=== PATIENT | male | born 1995 | race Caucasian/White ===

== ENCOUNTER 2017-02-23 21:30 | Emergency (ER) | payer OTHER ==
[~2017-02-23] VITALS: Ht 190.5 cm; Wt 121.1 kg
[2017-02-23 21:34] VITALS: TEMP 37; Ht 190.5 cm; Wt 121.1 kg
[2017-02-23] MEDS ORDERED: SODIUM CHLORIDE 0.9% 1000ML 1,000 ML IV STA ×2 (22:02)
[2017-02-23 22:07] VITALS: O2SAT 98
[2017-02-23 22:14] LABS: BASO % 0.1 %; BASO ABS # 0.01 K/uL (0-0.2); COMPLETE YES; EOS % 0.2 %; HEMATOCRIT 42.4 % (42-52); IG% 0.2 %; LYMPH % 18.5 %; LYMPH ABS # 1.75 K/uL (1.2-3.4); MEAN CELL VOLUME 81.5 fL (80-100); MEAN CORPUSCULAR HEMOGLOBIN 27.5 pg (25-34); MEAN CORPUSCULAR HGB CONC 33.7 g/dl (32-36); MEAN PLATELET VOLUME 10.1 fL (7.4-10.4); PLATELET COUNT 267 K/uL (130-400); WHITE BLOOD COUNT 9.47 K/uL (4.8-10.8)
[2017-02-23 22:21] LABS: ALT/SGPT 37 U/L (12-78); BLOOD UREA NITROGEN 9 mg/dl (7-18); BUN/CREATININE RATIO 9.2 (10-20); CALCIUM 9.3 mg/dl (8.5-10.1); CARBON DIOXIDE 25 mmol/L (21-32); CHLORIDE 103 mmol/L (98-107); GLUCOSE 90 mg/dl (70-99); MAGNESIUM 1.9 mg/dl (1.8-2.4); POTASSIUM 3.6 mmol/L (3.5-5.1); SODIUM 136 mmol/L (136-145)
[2017-02-23] MEDS ORDERED: DPRSCR45 TOP (22:27)
[2017-02-23] MEDS ORDERED: METH2.5T PO (22:27)
[2017-02-23] MEDS ORDERED: FLV1 PO (22:27)
[2017-02-23 22:30] LABS: ALKALINE PHOSPHATASE 86 U/L (45-117); AST/SGOT 24 U/L (15-37)
[2017-02-23 22:50] LABS: LYME DISEASE AB IGG NEG (NEG); LYME DISEASE AB IGM NEG (NEG)
--- NOTE | 2017-02-23 22:54 | DIAGNOSTIC IMAGING REPORT ---
CHEST ONE VIEW PORTABLE CLINICAL HISTORY: 21 years-old Male presenting with CHEST PAIN. TECHNIQUE: Portable upright AP view of the chest was obtained. COMPARISON: None. FINDINGS: Cardiomediastinal silhouette normal. Lungs and pleural spaces clear. Osseous structures normal. Upper abdomen normal. IMPRESSION: 1. No acute cardiopulmonary disease. Electronically signed by: Natan Bravo M.D. 02/23/2017 10:52 PM Dictated Date/Time: 02/23/2017 10:51 PM
[2017-02-24 01:08] VITALS: BP 120/70; PULSE 84; O2SAT 96
[2017-02-24] MEDS ORDERED: BENTYL HOME PACK 10 MG VIAL PO ONE (01:45)
[2017-02-24] MEDS ORDERED: ONDANSETRON HOME PACK 4MG OD TAB PO ONE (01:45)
--- NOTE | 2017-02-24 05:51 | EMERGENCY ROOM VISIT NOTE ---
History First contact with patient: 21:43 Chief Complaint: CARDIAC ASSESSMENT Stated Complaint: CHEST PAIN, HBP, LBS Nursing Triage Summary: patient reports chest pain and sob for one month History of Present Illness The patient is a 21 year old male who presents to the Emergency Room with complaints of diarrhea along with intermittent chest pain for the past month that occasionally makes him short of breath. No recent chest pain. Patient states every so time he eats in the past few days he has had diarrhea for the past 3 days. No blood or black in it. He has had recent antibiotics. No well water. Patient denies recent chest pain, dyspnea, abdominal pain, vomiting, cough, congestion, back pain, urinary symptoms. He is tolerate by mouth fluids and food. Patient is concerned his thyroid might be off again. Review of Systems See HPI for pertinent positives & negatives. A total of 10 systems reviewed and were otherwise negative. Past Medical/Surgical History GERD, psoriatic arthritis, wisdom tooth extraction Social History Smoking Status: Never Smoker Smokeless Tobacco Use: No Alcohol Use: none Drug Use: none Marital Status: single Housing Status: lives with roommate Occupation Status: [employer] student Current/Historical Medications Scheduled Folic Acid (Folic Acid), 1 MG PO DAILY Methotrexate Sodium (Methotrexate), 4 TABS PO WK Scheduled PRN Betamethasone Dip (Betamethasone Dipropionat), 1 APPLN TOP BID PRN for RASH Physical Exam Vital Signs Date Time Temp Pulse Resp B/P (MAP) Pulse Ox O2 Delivery O2 Flow Rate FiO2 02/24/17 01:08 84 16 120/70 96 Room Air 02/23/17 23:40 91 16 121/75 98 Room Air 02/23/17 22:07 98 Room Air 02/23/17 22:07 98 Room Air 02/23/17 21:48 101 02/23/17 21:34 37.0 106 18 157/87 97 Room Air Pain Rating (0-10): 2.0 Physical Exam VITALS: Vitals are noted on the nurse's note and reviewed by myself. Vital signs stable. GENERAL: Pleasant anxious-appearing male, in no acute distress, nondiaphoretic, well-developed well-nourished. SKIN: The skin was without rashes, erythema, edema, or bruising. There is no tenting of the skin. Capillary reflex less than 2 seconds. HEAD: Normocephalic atraumatic. EARS: External auditory canals clear, tympanic membranes pearly norris without erythema or effusion bilaterally. EYES: Pupils equal round and reactive to light and accommodation. Conjunctivae without injection, sclerae without icterus. Extraocular movements intact. NOSE: Patent, turbinates without inflammation or discharge. MOUTH: Mucous membranes moist. Pharynx without erythema or exudate. Uvula midline. Airway patent. Tongue does not deviate. NECK: Supple without nuchal rigidity. No lymphadenopathy. No thyromegaly. Cervical spine is nontender. No JVD. HEART: Regular rate and rhythm without murmurs gallops or rubs. Chest nontender to palpation LUNGS: Clear to auscultation bilaterally without wheezes, rales or rhonchi. No dullness to percussion. No retractions or accessory muscle use. ABDOMEN: Positive bowel sounds x 4. Normal tympanic percussion. Soft, nontender, without masses or organomegaly. Oliveros sign negative. No guarding or rebound tenderness. MUSCULOSKELETAL: No muscle atrophy, erythema, or edema noted. NEURO: Patient was alert and oriented to person place and time. Normal sensation to light and sharp touch. No focal neurological deficits. Medical Decision & Procedures Laboratory Results 02/23/17 21:45 Red Blood Count 5.20, Mean Corpuscular Volume 81.5, Mean Corpuscular Hemoglobin 27.5, Mean Corpuscular Hemoglobin Concent 33.7, Mean Platelet Volume 10.1, Neutrophils (%) (Auto) 68.0, Lymphocytes (%) (Auto) 18.5, Monocytes (%) (Auto) 13.0, Eosinophils (%) (Auto) 0.2, Basophils (%) (Auto) 0.1, Neutrophils # (Auto ) 6.44, Lymphocytes # (Auto) 1.75, Monocytes # (Auto) 1.23, Eosinophils # (Auto ) 0.02, Basophils # (Auto) 0.01 02/23/17 21:45 Test 02/23/17 21:45 White Blood Count 9.47 K/uL (4.8-10.8) Red Blood Count 5.20 M/uL (4.7-6.1) Hemoglobin 14.3 g/dL (14.0-18.0) Hematocrit 42.4 % (42-52) Mean Corpuscular Volume 81.5 fL (80-100) Mean Corpuscular Hemoglobin 27.5 pg (25-34) Mean Corpuscular Hemoglobin Concent 33.7 g/dl (32-36) Platelet Count 267 K/uL (130-400) Mean Platelet Volume 10.1 fL (7.4-10.4) Neutrophils (%) (Auto) 68.0 % Lymphocytes (%) (Auto) 18.5 % Monocytes (%) (Auto) 13.0 % Eosinophils (%) (Auto) 0.2 % Basophils (%) (Auto) 0.1 % Neutrophils # (Auto) 6.44 K/uL (1.4-6.5) Lymphocytes # (Auto) 1.75 K/uL (1.2-3.4) Monocytes # (Auto) 1.23 K/uL (0.11-0.59) Eosinophils # (Auto) 0.02 K/uL (0-0.5) Basophils # (Auto) 0.01 K/uL (0-0.2) RDW Standard Deviation 38.3 fL (36.4-46.3) RDW Coefficient of Variation 12.8 % (11.5-14.5) Immature Granulocyte % (Auto) 0.2 % Immature Granulocyte # (Auto) 0.02 K/uL (0.00-0.02) Anion Gap 8.0 mmol/L (3-11) Est Creatinine Clear Calc Drug Dose 165.2 ml/min Estimated GFR () 125.0 Estimated GFR (Non- 107.9 BUN/Creatinine Ratio 9.2 (10-20) Calcium Level 9.3 mg/dl (8.5-10.1) Magnesium Level 1.9 mg/dl (1.8-2.4) Total Bilirubin 0.7 mg/dl (0.2-1) Direct Bilirubin 0.1 mg/dl (0-0.2) Aspartate Amino Transf (AST/SGOT) 24 U/L (15-37) Alanine Aminotransferase (ALT/SGPT) 37 U/L (12-78) Alkaline Phosphatase 86 U/L (45-117) Total Creatine Kinase 59 U/L (39-308) Creatine Kinase MB < 0.5 ng/ml (0.5-3.6) Creatine Kinase MB Ratio (0-3.0) Troponin I < 0.015 ng/ml (0-0.045) Total Protein 8.8 gm/dl (6.4-8.2) Albumin 4.0 gm/dl (3.4-5.0) Lipase 90 U/L (73-393) Thyroid Stimulating Hormone (TSH) 2.030 uIu/ml (0.300-4.500) Lyme Disease IgG Antibody NEG (NEG) Lyme Disease IgM Antibody NEG (NEG) Date/Time Source Procedure Growth Status 02/23/17 23:05 Stool C.difficile Toxin B Gene (PCR) - Final No C. difficile toxin B gene detected Complete Medications Administered Medications (Trade) Dose Ordered Sig/Maisha Route Start Time Stop Time Status Last Admin Dose Admin Sodium Chloride 1,000 ml @ 999 mls/hr Q1H1M STAT IV 02/23/17 22:02 02/23/17 23:02 DC 02/23/17 22:02 999 MLS/HR Sodium Chloride 1,000 ml @ 125 mls/hr Q8H STAT IV 02/23/17 22:02 02/24/17 02:38 DC 02/23/17 22:02 125 MLS/HR ED Course Prior records/ancillary studies reviewed. Triage Nursing notes reviewed. Additional history obtained from family. The patient's history was concerning for diarrhea and chest pain. Differential diagnosis: Etiologies such as IBS, C. difficile, stool impaction, viral infection, cardiac ischemia, aortic dissection, pulmonary embolism, pneumonia, pneumothorax, musculoskeletal, infections, pericarditis, myocarditis, esophageal rupture, gastrointestinal, as well as others were entertained. Physical examination: As above. ER treatment provided: IV fluids On reassessment the patient felt better. Diagnostic interpretation by me: The electrocardiogram was negative for pathologic change. Normal sinus, normal intervals, no acute ST-T wave changes. Impression normal sinus rhythm interpreted by myself The labs revealed negative troponin. Stable H&H. Negative C. difficile Imaging studies: Chest x-ray with no acute consolidation, pneumothorax or free air per my interpretation Exam and history seem consistent with diarrhea most likely viral in etiology and noncardiac chest pain. Patient's chest pain symptoms have been intermittent for quite some time and nothing recent. Normal EKG. Negative troponin. He did not have acute abdomen on exam. He is well-appearing. He is tolerating fluids. He ate a full meal. He is advised to do bland diet for next few days and to follow-up family care in a few days or here in the ER sooner for chest pain, abdominal pain, fevers, vomiting, worsening signs or symptoms or as needed. By the evaluation outlined above emergent etiologies such as cardiac ischemia, aortic dissection, pulmonary embolism, pneumonia, pneumothorax, infections, pericarditis, myocarditis, gastrointestinal, as well as others were deemed relatively unlikely. The pt informed about the findings as listed above. All questions were answered and pleased with the treatment. Return instructions were outlined and the patient was discharged in stable condition. Outpatient prescription management: Abby Hernandez Referral: The patient was referred back to primary care physician for follow-up in 2 to 3 days for a recheck of the current condition. History of my attending Medical Decision as above Medication Reconcilliation Current Medication List: was personally reviewed by me Blood Pressure Screening Patient's blood pressure: Normal blood pressure Impression Primary Impression: Acute diarrhea Departure Information Dispostion Home / Self-Care Condition [employer] School Instructions, Return To School: 1 day IMPORTANT VISIT INFORMATION Patient Instructions Diarrhea, My [facility], ED Diet [place] Additional Instructions Recommend bland diet for the next few days until diarrhea subsides. Ibuprofen(Motrin, Advil) may be used for fever or pain. Use 600mg every six hours as needed. Take with food. Avoid using more than 2400mg in a 24 hour period. Do not use 2400mg per day for more than three consecutive days without physician direction. Prolonged inappropriate use can lead to stomach upset or ulcers. (AND/OR) Acetaminophen(Tylenol) may be used for fever or pain. Use 1000mg every six hours as needed. Avoid using more than 3000mg in a 24 hour period. Rest and drink plenty of fluids as tolerated. Continue current medications. Avoid strenuous activities and anything that worsens your pain. Resume normal activities once your symptoms resolve. Return to the ER immediately for black or blood in your stool, abdominal pain, vomiting, fevers, chest pains, difficulty breathing, worsening of your condition , or as needed. Follow up with your primary physician/health services in 2-3 days for a recheck of your current condition. School Instructions Return To School: 1 day
--- NOTE | 2017-02-27 17:07 | Pharmacy Progress Note ---
ED Pharmacist Culture FollowUp Date of Service: Feb 27, 2017. Called patient regarding stool culture with Salmonella. Patient had already been contacted and was prescribed ciprofloxacin. Patient reported significant improvement in diarrhea (no BM today, yet, and also less watery yesterday). Patient had multiple questions which I answered. Time spent ~15 minutes. Patient acknowledged understanding.
== END 2017-02-24 01:46 | disposition home or self-care (01) ==
LOC: C.EDB 21:32
DX: R19.7 Diarrhea, unspecified (principal); K21.9 Gastro-esophageal reflux disease without esophagitis; M19.90 Unspecified osteoarthritis, unspecified site

== ENCOUNTER → 2017-09-27 | Outpatient (CLI) | payer OTHER ==
[~2017-09-27] MED LIST: DPRSCR45 TOP; FLV1 PO; METH2.5T PO
--- NOTE | 2017-09-27 11:52 | EEG Procedure Note ---
EEG Procedure Note Date of Service Sep 27, 2017. Start / End Times Start Time: 9:40 AM End Time: 10:01 AM Referring Physician ELINOR Rothman History This is a 21-year-old male with episodes of muscle twitching and changes in speech. EEG for further evaluation of possible seizure etiology. Home Medication List Scheduled Folic Acid (Folic Acid), 1 MG PO DAILY Methotrexate Sodium (Methotrexate), 4 TABS PO WK Scheduled PRN Betamethasone Dip (Betamethasone Dipropionat), 1 APPLN TOP BID PRN for RASH Description This is a 21 electrode EEG with a single channel dedicated to limited EKG. The electrodes were placed in accordance with the International 10-20 system. At the start of the recording the patient was in an awake state. Background was well organized and composed of symmetric mixed alpha and beta frequencies. There was a symmetric well-formed moderate amplitude 11Hz posterior dominant rhythm that was reactive to eye opening and closure. Hyperventilation with good effort produced no abnormalities. Intermittent photic stimulation at various frequencies produced no abnormalities. There was no state changes or sleep transients. Interpretation This is a normal awake only routine EEG. There was no electrographic seizures or epileptiform discharges. Clinical Correlation A normal EEG does not rule out epilepsy if there is a strong clinical suspicion.
== END | disposition home or self-care (01) ==
LOC: C.NEUR 09:20
PROVIDERS: ATTEND Physician Assistant
DX: R47.89 Other speech disturbances (principal); R25.3 Fasciculation